=== PATIENT | male | born 1935 | race Caucasian/White ===

== ENCOUNTER 2017-04-16 12:42 | Emergency (ER) | payer OTHER, MEDICARE ==
--- NOTE | 2017-04-18 02:42 | ER ---
ADMIT: 04/16/2017 RM/LOC: ER [facility] MR#: [id number] [address] [id number] [place] [address] Emergency Room Report SEX: M AGE: 81 : 1935 DATE: 04/16/2017 TIME: 1242 hours. Please refer to my T-sheet for complete H and P. 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 Apparently just moved here from [place] to [facility]. Apparently, they pulled his trach out unfortunately. There was a proof by hospice to bring him in to have the trach replaced only. PHYSICAL EXAMINATION: VITAL SIGNS: Blood pressure 139/86, pulse 95, respirations 29, temp 98.6, and 100%. GENERAL: No acute distress. HEENT: His trach site has a tamp in there. LUNGS: Clear. SKIN: No rash. EMERGENCY DEPARTMENT COURSE: We did not have the exact size, they did not bring one with him. We did have a [place] 6 or 8, #7 was in there originally. I was able to place the 6 with some difficulty. The patient tolerated well, but advised to follow up if they may want it changed out to the other one, they have had better luck with that. ASSESSMENT: 1. Trach dislodged. 2. Replaced in the Emergency Department by myself as described. PLAN: Follow up with ENT this week. Return if worse. Jhon Silverio MD/ michael JOB #: [id number] CC: Jhon Silverio MD, Attending Physician Bubba Kendrick MD, Family Physician
== END 2017-04-16 13:15 | disposition home or self-care (01) ==
LOC: ER 12:42
DX: J95.03 Malfunction of tracheostomy stoma (principal); E11.9 Type 2 diabetes mellitus without complications; I10 Essential (primary) hypertension; E78.5 Hyperlipidemia, unspecified; F41.9 Anxiety disorder, unspecified